=== PATIENT | male | born 1995 | race American Indian/Alaskan Native ===

== ENCOUNTER 2017-03-10 19:05 | Emergency (ER) | payer SELFPAY ==
[2017-03-10 20:20] VITALS: BP 142/95
[2017-03-11] MEDS ORDERED: hyperRAB S/D IM ONE (00:55)
[2017-03-11] MEDS ORDERED: XYLOCAINE 1%/ EPI 1:100,000 INFILTRATI ONE (00:55)
[2017-03-11] MEDS ORDERED: RABAVERT RABIES VACCINE(PCEC) IM ONE (00:55)
[2017-03-11] MEDS ORDERED: XYLOCAINE 2%/EPI 1:100,000 INFILTRATI ONE (01:12)
[2017-03-11] MEDS ORDERED: NACL 0.9% 500 ML IR ONE (01:13)
--- NOTE | 2017-03-11 02:20 | Emergency Department Report ---
ED Animal Bite HPI - General Chief Complaint: Animal Bite Stated Complaint: ATTACKED BY A STRAY DOG Time Seen by Provider: 03/11/17 00:50 Source: patient Mode of arrival: Ambulatory Limitations: No Limitations - History of Present Illness Initial Comments: Patient comes into the ER today with complaints of lip pain as well as right forearm and left hand pain after being attacked by 2 stray dogs while at a convenient store today. Patient states that these dogs came out of nowhere, he is never seen his dogs before and they just simply attacked him. Patient states that animal control was notified but as far as he knows they have not captured these dogs. MD Complaint: animal bite -: Sudden - Related Data Previous Rx's Medication Instructions Recorded Last Taken Type Amoxicillin/K Clav Tab [Augmentin 1 tab PO Q12HR #20 tab 03/11/17 Unknown Rx 875 mg] Naproxen [Naprosyn TAB] 500 mg PO BID #20 tablet 03/11/17 Unknown Rx traMADol [Ultram] 50 mg PO Q4HR PRN #30 tablet 03/11/17 Unknown Rx Allergies Allergy/AdvReac Type Severity Reaction Status Date / Time No Known Allergies Allergy Verified 03/11/17 00:57 ED Review of Systems ROS: Stated complaint: ATTACKED BY A STRAY DOG Other details as noted in HPI Constitutional: denies: chills, fever Eyes: denies: eye pain, eye discharge, vision change ENT: denies: ear pain, throat pain Respiratory: denies: cough, shortness of breath, wheezing Cardiovascular: denies: chest pain, palpitations Endocrine: no symptoms reported Gastrointestinal: denies: abdominal pain, nausea, diarrhea Genitourinary: denies: urgency, dysuria Musculoskeletal: denies: back pain, joint swelling, arthralgia Skin: other (right forearm, left thumb left hand and lower lip lacerations/ abrasions). denies: rash, lesions Neurological: denies: headache, weakness, paresthesias Psychiatric: denies: anxiety, depression Hematological/Lymphatic: denies: easy bleeding, easy bruising ED Past Medical Hx - Past Medical History Previous Medical History?: No - Surgical History Past Surgical History?: No - Social History Smoking Status: Never Smoker Substance Use Type: Marijuana - Medications Home Medications: Home Medications Medication Instructions Recorded Confirmed Last Taken Type Amoxicillin/K Clav Tab [Augmentin 1 tab PO Q12HR #20 tab 03/11/17 Unknown Rx 875 mg] Naproxen [Naprosyn TAB] 500 mg PO BID #20 tablet 03/11/17 Unknown Rx traMADol [Ultram] 50 mg PO Q4HR PRN #30 tablet 03/11/17 Unknown Rx ED Physical Exam - General Limitations: No Limitations General appearance: alert, in no apparent distress - Head Head exam: Present: atraumatic, normocephalic - Eye Eye exam: Present: normal appearance - ENT ENT exam: Present: mucous membranes moist, other (lower lip laceration internally and externally. Jagged, irregular laceration just left of midline to lower lip. Laceration does extend below the vermilion border. Overall length of laceration is 4.5 cm) - Neck Neck exam: Present: normal inspection - Respiratory Respiratory exam: Present: normal lung sounds bilaterally. Absent: respiratory distress - Cardiovascular Cardiovascular Exam: Present: regular rate, normal rhythm. Absent: systolic murmur, diastolic murmur, rubs, gallop - GI/Abdominal GI/Abdominal exam: Present: soft, normal bowel sounds - Rectal Rectal exam: Present: deferred - Extremities Exam Extremities exam: Present: normal inspection, tenderness, other (right anterior midline forearm superficial abrasions approximately 1 cm in overall length. Left hand with superficial abrasions noted to left medial proximal thumb and left lateral hand along second MCP joint) - Back Exam Back exam: Present: normal inspection - Neurological Exam Neurological exam: Present: alert, oriented X3 - Psychiatric Psychiatric exam: Present: normal affect, normal mood - Skin Skin exam: Present: warm, dry, intact, normal color. Absent: rash ED Course Vital Signs 03/10/17 20:06 Temperature 99.2 F Pulse Rate 93 H Respiratory 16 Rate Blood Pressure 142/95 Blood Pressure 142/95 [Left] O2 Sat by Pulse 100 Oximetry - Laceration /Wound Repair Left Lower Face Wound Location: mouth Wound Length (cm): 4 (4.5 cm) Wound's Depth, Shape: irregular, stellate Wound Explored: no foreign body removed Irrigated w/ Saline (ccs): 30 Betadine Prep?: Yes Anesthesia: 1% Lidocaine, Lidocaine w/ Epi Volume Anesthetic (ccs): 4 Wound Repaired With: sutures Suture Size/Type: 6:0, proline Number of Sutures: 7 Layer Closure?: No Deep Layer Suture Size/Type: 5:0, chromic Number Deep Layer Sutures: 5 (deep layer sutures actually referring to internal lip sutures) Progress: Patient tolerated procedure very well without any complications. Each break in the skin was infiltrated with rabies immunoglobulin. Remaining 4 mL of immunoglobulin injected intramuscularly by the nurse. Patient was also given rabies vaccine here in the ER today. Critical care attestation.: If time is entered above; I have spent that time in minutes in the direct care of this critically ill patient, excluding procedure time. ED Disposition Clinical Impression: Dog bite of vermilion border of lower lip, Need for rabies vaccination Disposition: TO HOME OR SELFCARE Is pt being admited?: No Does the pt Need Aspirin: No Condition: Good Instructions: Animal Bite (ED), Laceration (ED), Suture Care (ED), Rabies Vaccine (Injection), Rabies Immune Globulin (Injection) Prescriptions: Amoxicillin/K Clav Tab [Augmentin 875 mg] 1 tab PO Q12HR #20 tab Naproxen [Naprosyn TAB] 500 mg PO BID #20 tablet traMADol [Ultram] 50 mg PO Q4HR PRN #30 tablet PRN Reason: Pain Referrals: PRIMARY CARE, [Primary Care Provider] - 3-[address] [facility], emergency Department [Other] - 03/14/17 (for second rabies vaccination) [facility] [Outside] - 03/14/17 (for 2nd rabies vaccination) Time of Disposition: 02:34
== END 2017-03-11 02:43 | disposition home or self-care (01) ==
LOC: ED 19:05
DX: S01.551A Open bite of lip, initial encounter (principal); S50.811A Abrasion of right forearm, initial encounter; S60.512A Abrasion of left hand, initial encounter; F12.10 Cannabis abuse, uncomplicated; W54.0XXA Bitten by dog, initial encounter; Y93.89 Activity, other specified; Y99.8 Other external cause status; Y92.512 Supermarket, store or market as the place of occurrence of the external cause
CPT/HCPCS: 90375; 90471; 90675; 96372